=== PATIENT | male | born 1980 | race African-American/Black ===

== ENCOUNTER 2018-09-29 11:58 | Inpatient (IN) ==
[2018-09-29] MEDS ORDERED: SODIUM CHLORIDE 0.9% 1,000 ML IV STA (12:37)
[2018-09-29 12:45] LABS: Basophils # 0.1 10*3/uL (0.0-0.2); Basophils % 0.7 % (0.0-0.8); Eosinophils % 0.1 % (0.00-10.9); Hematocrit 52.1 VOL% (42.0-52.0); Hemoglobin 17.4 GM/DL (14.0-18.0); Immature Granulocytes Absolute 0.44 #; Lymphocytes # 2.5 10*3/uL (1.4-4.0); Lymphocytes % 17.5 % (21.2-54.2); Mean Corpuscular HGB Conc 33.4 GM/DL (32-36); Mean Corpuscular Volume 96.1 FL (87-102); Monocytes % 6.3 % (1.7-12.7); Neutrophils % 72.4 % (38.7-73.9); Platelet Count 240 T/CUMM (130-400); Red Blood Count 5.42 MC/CUMM (3.8-5.5); Red Cell Distribution Width 13.7 % (9.3-17.3); White Blood Count 14.4 T/CUMM (4-12)
[2018-09-29 12:53] LABS: INR 0.9; PT Patient Result 9.4 SECS
[2018-09-29 13:13] LABS: Albumin 4.2 G/DL (3.4-5.0); Bilirubin,Total 0.4 MG/DL (0.2-1.0); Calcium 8.8 MG/DL (8.5-10.1); Total Protein 8.5 G/DL (6.4-8.3)
[2018-09-29] MEDS ORDERED: INSULIN REGULAR 100 UNIT/ML IV STA (13:16)
[2018-09-29 13:43] LABS: Apearance,Urine CLEAR (Clear); Bilirubin,Urine Negative (Negative); Blood, Urine Small mg/dL (Negative); Glucose,Urine (UA) >=500 mg/dL (Negative); Ketones,Urine 80 mg/dL (Negative); Mucus,Urine Occasional /LPF (Occasional); Nitrite,Urine Negative (Negative); Protein,Urine 100 MG/DL; RBC,Urine 2 /HPF (0-4); Squamous Epithelial Cell,Urine Occasional /HPF (0-10); Urine Color Yellow (Yellow); Urine Specific Gravity 1.024 (1.001-1.035); Urine Urobilinogen < 2.0 EU/DL (0.2-1.0); WBC,Urine 1 /HPF (0-6)
[2018-09-29 13:46] LABS: ABG Base Excess -27.8 MMOL/L (-2.5-2.5); ABG HCO3 7.3 MMOL/L (20-26); ABG Oxygen Saturation 97.7 % (95-100); ABG TCO2 3.3 MMOL/L (23-27)
[2018-09-29 13:50] LABS: ABG PCO2 13.2 MM HG (35-48); ABG PH 7.055 (7.35-7.45)
[2018-09-29] MEDS ORDERED: MAGNESIUM SULF RIDER 2 GM in PREMIX 1 EACH IV PRN (14:00)
[2018-09-29] MEDS ORDERED: MAGNESIUM SULF RIDER 4 GM in PREMIX 1 EACH IV PRN (14:00)
[2018-09-29] MEDS ORDERED: GLUCAGON 1 MG VIAL IM PRN (14:00)
[2018-09-29] MEDS ORDERED: DEXTROSE 50% 25 GM/50 ML VIAL IV PRN ×2 (14:00)
[2018-09-29] MEDS ORDERED: INSULIN REGULAR 100 UNIT/ML IV ONE (14:00)
[2018-09-29] MEDS ORDERED: SODIUM PHOSPHATE INJ 21 MMOL in SODIUM CHLORIDE 0.9% 250 ML IV PRN (14:00)
[2018-09-29 14:14] LABS: Barbiturates Screen,Urine Negative (Negative); Benzodiazepines Screen,Urine Negative (Negative); Cannabinoid Screen,Urine Positive (Negative); Opiate Screen,Urine Negative (Negative); Phencyclidine Screen,Urine Negative (Negative)
[2018-09-29] MEDS ORDERED: DEXTROSE 5% NACL 0.45% 1,000 ML IV SCH (14:30)
[2018-09-29] MEDS: SODIUM CHLORIDE 0.9% 1,000 ML IV SCH ×2 (14:36→17:04)
[2018-09-29 14:51] LABS: Calcium 8.2 MG/DL (8.5-10.1); Osmolality,Calculated 289.5 MOS/KG (273-304)
[2018-09-29] MEDS: INSULIN REGULAR DRIP 100 ML IV SCH (15:03)
[2018-09-29] MEDS: ENOXAPARIN 40 MG/0.4 ML SYRINGE SUBCUT SCH (15:16)
[2018-09-29 18:14] LABS: ABG Base Excess -21.7 MMOL/L (-2.5-2.5); ABG HCO3 9.7 MMOL/L (20-26); ABG Oxygen Saturation 97.5 % (95-100); ABG TCO2 5.8 MMOL/L (23-27)
[2018-09-29 18:30] LABS: Calcium 7.6 MG/DL (8.5-10.1); Osmolality,Calculated 280.5 MOS/KG (273-304)
[2018-09-29 18:47] LABS: ABG PCO2 18.3 MM HG (35-48); ABG PH 7.157 (7.35-7.45)
[2018-09-29] MEDS ORDERED: SODIUM CHLORIDE 0.9% 1,000 ML IV SCH ×2 (19:00→20:30)
[2018-09-29] MEDS ORDERED: DEXTROSE 5% NACL 0.9% 1,000 ML IV SCH (19:30)
[2018-09-29 19:55] LABS: ABG Base Excess -18.1 MMOL/L (-2.5-2.5); ABG HCO3 11.5 MMOL/L (20-26); ABG Oxygen Saturation 97.6 % (95-100); ABG PO2 96.2 MM HG (80-95); ABG TCO2 7.8 MMOL/L (23-27); Allen Test Positive; Pt O2 Delivery Device Room Air
[2018-09-29 19:58] LABS: ABG PH 7.209 (7.35-7.45)
[2018-09-29 22:56] LABS: Calcium 7.9 MG/DL (8.5-10.1); Osmolality,Calculated 279.8 MOS/KG (273-304)
[2018-09-29] MEDS: SODIUM CHLORIDE 0.45% 1,000 ML IV SCH (23:20)
[2018-09-30 01:30] LABS: Basophils % 0.3 % (0.0-0.8); Eosinophils % 0.1 % (0.00-10.9); Hematocrit 39.8 VOL% (42.0-52.0); Hemoglobin 14.3 GM/DL (14.0-18.0); Immature Granulocytes % 2.2 %; Immature Granulocytes Absolute 0.22 #; Lymphocytes # 2.7 10*3/uL (1.4-4.0); Lymphocytes % 26.9 % (21.2-54.2); Mean Corpuscular HGB Conc 35.9 GM/DL (32-36); Mean Corpuscular Volume 91.5 FL (87-102); Mean Platelet Volume 11.6 FL (9.6-12.0); Monocytes % 8.1 % (1.7-12.7); Neutrophils % 62.4 % (38.7-73.9); Platelet Count 169 T/CUMM (130-400); Red Blood Count 4.35 MC/CUMM (3.8-5.5); Red Cell Distribution Width 13.6 % (9.3-17.3)
[2018-09-30 01:51] LABS: Osmolality,Calculated 276.5 MOS/KG (273-304)
[2018-09-30] MEDS: POTASSIUM CHLORIDE RIDER 10 MEQ in PREMIX 1 EACH IV PRN ×5 (02:17→10:15)
[2018-09-30 04:02] VITALS: BP 118/90
[2018-09-30 06:13] LABS: Calcium 8.4 MG/DL (8.5-10.1); Osmolality,Calculated 269.1 MOS/KG (273-304)
[2018-09-30] MEDS: SODIUM CHLORIDE 0.45% 1,000 ML IV SCH ×2 (07:50→15:10)
[2018-09-30 09:54] LABS: Calcium 8.4 MG/DL (8.5-10.1); Osmolality,Calculated 276.8 MOS/KG (273-304)
[2018-09-30] MEDS ORDERED: DEXTROSE 5% NACL 0.45% 1,000 ML IV SCH (11:30)
[2018-09-30] MEDS: POTASSIUM CHLORIDE 20 MEQ TABLET PO PRN ×3 (11:51→17:30)
[2018-09-30] MEDS: INSULIN REGULAR DRIP 100 ML IV SCH ×2 (11:55→15:19)
[2018-09-30 14:24] LABS: Albumin 2.9 G/DL (3.4-5.0); Calcium 8.1 MG/DL (8.5-10.1); Osmolality,Calculated 275.8 MOS/KG (273-304)
[2018-09-30] MEDS ORDERED: POTASSIUM PHOS/SOD PHOS POWDER 250 MG PACK PO SCH (15:00)
[2018-09-30] MEDS: ENOXAPARIN 40 MG/0.4 ML SYRINGE SUBCUT SCH (15:38)
[2018-09-30 18:43] LABS: Calcium 8.4 MG/DL (8.5-10.1); Osmolality,Calculated 276.7 MOS/KG (273-304)
== END 2018-09-30 21:07 | disposition home or self-care (01) | DRG 639 ==
LOC: N.ED 11:58 → N.EDINP 13:20 → N.CC 14:10
PROVIDERS: ADMIT Internal Medicine Geriatric Medicine; ATTEND Internal Medicine Geriatric Medicine